=== PATIENT | female | born 1940 | race Two or more races ===

== ENCOUNTER 2018-04-11 07:04 | Outpatient (CLI) | payer OTHER | END 2018-04-11 07:17 | disposition home or self-care (01) | LOC: NUCLEAR 07:04 | DX: I20.0 Unstable angina (principal); E78.2 Mixed hyperlipidemia; I11.9 Hypertensive heart disease without heart failure | CPT/HCPCS: 78452; 93017; A9500 ==

== ENCOUNTER 2019-12-20 08:37 | Outpatient (CLI) | payer OTHER | END 2019-12-20 09:10 | disposition home or self-care (01) | LOC: NUCLEAR 08:37 | PROVIDERS: ATTEND Psychiatry & Neurology Clinical Neurophysiology | DX: I48.91 Unspecified atrial fibrillation (principal); R00.2 Palpitations; I25.10 Atherosclerotic heart disease of native coronary artery without angina pectoris ==